=== PATIENT | female | born 1995 | race Caucasian/White ===

== ENCOUNTER 2023-02-07 19:43 | Emergency (ER) | payer BC, SELFPAY ==
[2023-02-07] MEDS ORDERED: Ketorolac Tromethamine 30 MG/ML VIAL ONE (22:11)
[2023-02-07] MEDS ORDERED: Cyclobenzaprine 10 MG TAB ONE (22:11)
== END 2023-02-07 23:31 | disposition home or self-care (01) ==
LOC: ERS 19:43
DX: M54.50 Low back pain, unspecified (principal)
CPT/HCPCS: 72100; 96372; J1885